=== PATIENT | male | born 1945 | race Caucasian/White ===

== ENCOUNTER 2023-02-23 00:31 | Emergency (ER) | payer MEDICARE, BC ==
[2023-02-23 01:21] LABS: #Basophils 0.1 10x3/uL (0.0-0.2); #Eosinphils 0.2 10x3/uL (0.0-0.5); #Monocytes 0.7 10x3/uL (0.0-1.1); #Neutrophils 6.8 10x3/uL (1.5-8.4); %Basophils 0.6 % (0.0-2.0); %Eosinophils 1.8 % (0.0-6.0); %Monocytes 7.3 % (0.0-10.0); %Neutrophils 69.4 % (40.0-75.0); Hemoglobin 15.7 g/dL (13.5-17.5); Mean Corpuscular HGB CONC 33.7 g/dL (32.0-36.0); Mean Corpuscular Hemoglobin 28.6 pg (27.0-33.0); Mean Corpuscular Volume 84.9 fl (81.2-95.1); Mean Platelet Volume 11.4 fl (7.4-10.4); Platelet Count 205 10x3/uL (150-450); RBC Distribution Width 13.5 % (11.5-14.5); Red Blood Cell (RBC) Count 5.49 10x6/uL (4.32-5.72); White Blood Cell (WBC) Count 9.9 10x3/uL (3.5-10.5)
[2023-02-23 01:33] LABS: ALT (SGPT) 18 U/L (8-55); AST (SGOT) 22 U/L (5-34); Albumin 4.7 g/dL (3.4-4.8); Alkaline Phosphatase 107 U/L (40-110); Anion Gap 17 mmol/L (10-20); BUN (Urea Nitrogen) 14 mg/dL (8.4-25.7); Bilirubin, Total 0.5 mg/dL (0.2-1.2); Calc. Creatinine Clearance 0 mL/min (70-130); Calcium 9.5 mg/dL (7.8-10.44); Carbon Dioxide 23 mmol/L (23-31); Chloride 104 mmol/L (98-107); Estimated GFR 88; Globulin 2.9 g/dL (2.4-3.5); Glucose 117 mg/dL (83-110); Magnesium 2.4 mg/dL (1.6-2.6); Potassium 3.6 mmol/L (3.5-5.1); Protein, Total 7.6 g/dL (5.8-8.1); Sodium 140 mmol/L (136-145)
== END 2023-02-23 02:00 | disposition home or self-care (01) ==
LOC: CSHERS 00:31
DX: I10 Essential (primary) hypertension (principal); I25.10 Atherosclerotic heart disease of native coronary artery without angina pectoris; K21.9 Gastro-esophageal reflux disease without esophagitis; E78.5 Hyperlipidemia, unspecified; N40.0 Benign prostatic hyperplasia without lower urinary tract symptoms; Z79.899 Other long term (current) drug therapy; Z79.82 Long term (current) use of aspirin
CPT/HCPCS: 71045; 80053; 83735; 84484; 85025; 93005

== ENCOUNTER 2023-11-18 12:39 | Observation (INO) | payer BC, MEDICARE ==
[2023-11-18 13:27] LABS: #Basophils 0.1 10x3/uL (0.0-0.2); #Eosinphils 0.1 10x3/uL (0.0-0.5); #Monocytes 0.7 10x3/uL (0.0-1.1); #Neutrophils 6.4 10x3/uL (1.5-8.4); %Basophils 0.8 % (0.0-2.0); %Eosinophils 0.9 % (0.0-6.0); %Lymphocytes 18.6 % (18.0-47.0); %Monocytes 7.7 % (0.0-10.0); %Neutrophils 71.3 % (40.0-75.0); Hematocrit 45.5 % (38.8-50.0); Hemoglobin 15.4 g/dL (13.5-17.5); Mean Corpuscular HGB CONC 33.8 g/dL (32.0-36.0); Mean Corpuscular Hemoglobin 28.6 pg (27.0-33.0); Mean Corpuscular Volume 84.6 fl (81.2-95.1); Mean Platelet Volume 11.3 fl (7.4-10.4); Platelet Count 232 10x3/uL (150-450); RBC Distribution Width 14.1 % (11.5-14.5); Red Blood Cell (RBC) Count 5.38 10x6/uL (4.32-5.72); White Blood Cell (WBC) Count 8.9 10x3/uL (3.5-10.5)
[2023-11-18 13:49] LABS: ALT (SGPT) 20 U/L (8-55); AST (SGOT) 27 U/L (5-34); Albumin 4.1 g/dL (3.4-4.8); Alkaline Phosphatase 100 U/L (40-110); Anion Gap 16 mmol/L (10-20); BUN (Urea Nitrogen) 8 mg/dL (8.4-25.7); Bilirubin, Total 0.4 mg/dL (0.2-1.2); Calc. Creatinine Clearance 0 mL/min (70-130); Calcium 9.2 mg/dL (7.8-10.44); Carbon Dioxide 23 mmol/L (23-31); Chloride 100 mmol/L (98-107); Estimated GFR 81; Globulin 3.1 g/dL (2.4-3.5); Glucose 111 mg/dL (83-110); Potassium 3.7 mmol/L (3.5-5.1); Protein, Total 7.2 g/dL (5.8-8.1); Sodium 135 mmol/L (136-145)
[2023-11-18 13:55] LABS: Troponin I Less than 0.010 ng/mL (< 0.028)
[2023-11-18 15:04] LABS: Magnesium 1.8 mg/dL (1.6-2.6)
[2023-11-18] MEDS ORDERED: Nitroglycerin 0.4 MG TAB (25 Tab Bottle) SL PRN (15:24)
[2023-11-18 18:29] VITALS: BMI 34.3
[2023-11-18] MEDS ORDERED: Aspirin 325 MG TAB PO SCH (19:45)
[2023-11-18] MEDS ORDERED: Enoxaparin 40 MG (0.4 mL) SYRINGE SC SCH (19:45)
[2023-11-18] MEDS ORDERED: Tamsulosin HCl 0.4 MG CAP PO SCH (21:00)
[2023-11-18] MEDS ORDERED: Finasteride 5 MG TAB PO SCH (21:00)
[2023-11-18 22:26] LABS: Troponin I 0.017 ng/mL (< 0.028)
[2023-11-19] MEDS ORDERED: Melatonin 3 MG TAB PO SCH (02:00)
[2023-11-19 05:26] VITALS: TEMP 98.1
[2023-11-19 05:36] LABS: Cardiac Risk 3.3 (Less than 4.5)
[2023-11-19] MEDS ORDERED: Losartan 50 MG TAB PO SCH (09:00)
[2023-11-19] MEDS ORDERED: Hydrochlorothiazide 25 MG TAB PO SCH (09:00)
[2023-11-19] MEDS ORDERED: Aspirin Chewable 81 MG TAB PO SCH (09:00)
[2023-11-19] MEDS ORDERED: NIACIN 1000 MG PO SCH (09:00)
[2023-11-19] MEDS ORDERED: dilTIAZem CD 180 MG CAP PO SCH (09:00)
[2023-11-19 11:46] VITALS: BP 182/88
== END 2023-11-19 15:04 | disposition home or self-care (01) ==
LOC: SUATTDRO 12:39 → CSHERS 12:39 → CSHTELE 14:43
PROVIDERS: ADMIT Family Medicine; ATTEND Nurse Practitioner Acute Care
DX: R07.2 Precordial pain (principal); I11.0 Hypertensive heart disease with heart failure; I50.30 Unspecified diastolic (congestive) heart failure; N40.0 Benign prostatic hyperplasia without lower urinary tract symptoms; K21.9 Gastro-esophageal reflux disease without esophagitis; E78.5 Hyperlipidemia, unspecified; Z86.73 Personal history of transient ischemic attack (TIA), and cerebral infarction without residual deficits; Z95.1 Presence of aortocoronary bypass graft; Z87.891 Personal history of nicotine dependence; Z88.1 Allergy status to other antibiotic agents; Z79.82 Long term (current) use of aspirin; Z79.899 Other long term (current) drug therapy; Z90.49 Acquired absence of other specified parts of digestive tract; Z98.890 Other specified postprocedural states
CPT/HCPCS: 71045; 80061; 83735; 84484 ×2; 93005; 96372; 99285; G0378 ×3; 36415; 80053; 84443; 85025; J1650